=== PATIENT | male | born 1965 | race Caucasian/White ===

== ENCOUNTER 2017-07-16 08:15 | Day surgery (SDC) | payer OTHER ==
[~2017-07-16] VITALS: Ht 170.2 cm; Wt 75.5 kg
[2017-07-16] MEDS ORDERED: SODIUM CHLORIDE 0.9% 1,000 ML IV ONE ×2 (08:29→09:00)
[2017-07-16 11:20] VITALS: BP 123/89
[2017-07-16] MEDS ORDERED: TRIAMCINOLONE ACETONIDE 40 MG/ML VIAL ONE (11:23)
[2017-07-16] MEDS ORDERED: LIDOCAINE HCL/PF 1% 30 ML VIAL ONE (11:23)
[2017-07-16] MEDS ORDERED: SODIUM BICARBONATE 50 MEQ/50 ML VIAL ONE (11:23)
[2017-07-16] MEDS ORDERED: IOHEXOL 300 MG/ML 10 ML VIAL ONE (11:26)
[2017-07-16] MEDS ORDERED: BUPIVACAINE HCL/PF 0.75% 10 ML VIAL ONE (11:26)
[2017-07-16 11:35] VITALS: BP 121/86
[2017-07-16] MEDS ORDERED: TRIAMCINOLONE ACETONIDE 40 MG/ML VIAL IARTIC ONE (11:45)
[2017-07-16] MEDS ORDERED: BUPIVACAINE HCL/PF 0.75% 10 ML VIAL INJ ONE (11:45)
[2017-07-16] MEDS ORDERED: LIDOCAINE HCL/PF 1% 30 ML VIAL INJ ONE (11:45)
[2017-07-16] MEDS ORDERED: IOHEXOL 300 MG/ML 10 ML VIAL IARTIC ONE (12:15)
== END 2017-07-16 12:15 | disposition home or self-care (01) ==
LOC: SDS 08:15
PROVIDERS: ATTEND Physical Medicine & Rehabilitation Pain Medicine
DX: M54.16 Radiculopathy, lumbar region (principal); Z72.89 Other problems related to lifestyle; Z98.890 Other specified postprocedural states; Z88.6 Allergy status to analgesic agent
CPT/HCPCS: 64483; 72275; J3301; J3490 ×2; J7030; Q9967